=== PATIENT | female | born 1965 | race African-American/Black ===

== ENCOUNTER 2019-09-27 09:43 | Outpatient (CLI) | payer OTHER, SELFPAY ==
--- NOTE | ~2019-09-27 | MM_ITS ---
MM post biopsy diagnostic RT DATE: 09/27/2019 11:59 INDICATION: Post stereotactic biopsy diagnostic right mammogram TECHNIQUE: Digital ML and CC exposures of right breast following stereotactic biopsy of posterior upp er outer quadrant right breast calcifications COMPARISON: 09/11/2019 bilateral digital screening mammogram FINDINGS: A stellate detected biopsy marker is present but is 3 cm lateral and 3.5 cm cephalad to the area of biopsied microcalcifications. There are residual microcalcifications, but some microcalcific ations were obtained by the stereotactic biopsy, sufficient for diagnostic purposes. IMPRESSION: Status post are detected biopsy of posterior upper outer quadrant right breast magnificat ion; lipoma calcifications remain. 3 cm lateral and 3.5 cm superior migration of the biopsy marker Reviewed, dictated and finalized at [facility] Reviewed, dictated and finalized at [facility]. IMPRESSION: Status post are detected biopsy of posterior upper outer quadrant r ight breast magnification; lipoma calcifications remain. 3 cm lateral and 3.5 cm superior migration of the biopsy marker
--- NOTE | ~2019-09-27 | MM_ITS ---
MM stereotactic specimen RT DATE: 09/27/2019 11:59 INDICATION: Microcalcifications in posterior upper outer right breast TECHNIQUE: Single digital mammographic exposure of stereotactic biopsy specimen tissue COMPARISON: 09/11/2019 mammogram outside images 09/27/2019 right stereotactic biopsy images FINDINGS: Multiple microcalcifications of interest are present within the specimen tissue. IMPRESSION: Successful stereotactic biopsy of posterior upper outer quadrant right breast microcalcif ications Reviewed, dictated and finalized at [facility] Reviewed, dictated and finalized at [facility] IMPRESSION: Successful stereotactic biopsy of posterior upper outer quadrant ri ght breast microcalcifications
--- NOTE | ~2019-09-27 | MM_ITS ---
EXAMINATION: MM stereotactic bx RT, Specimen Radiograph, Tissue Marker Clip Placement, Unilateral Kain mogram DATE: 09/27/2019 11:58 INDICATION: Abnormal mammogram: Grouped microcalcifications, posterior upper outer right breast. TECHNIQUE AND FINDINGS: The risks and potential benefits of the procedure were discussed with the patient and written informe d consent was obtained. Timeout procedure was performed. The patient was placed in the prone position on the dedicated stereotactic table with the right breast in lateral medial compression, and the are a of interest was localized and targeted utilizing digital imaging with stereotaxis. After sterile preparation of the skin, 1% lidocaine was utilized for local anesthesia at the skin pun cture site and 1% lidocaine with epinephrine was utilized for deeper local anesthesia/is about the bi opsy site. A 9G [employer] vacuum assisted biopsy needle was advanced to the level of the calcification o f interest from a lateral approach utilizing stereotactic guidance and a total of 12 tissue core biop sies were obtained. A specimen radiograph demonstrates that the calcifications of interest are included within the tissue cores. A tissue marker clip was then placed at the biopsy site. A digital mammographic exposure co nfirmed the successful deployment of the biopsy marker. The needle was removed and hemostasis was ac hieved. A sterile bandage was applied. The patient tolerated the procedure well and there is no lizzeth dence of significant immediate complication. The patient was given verbal as well as written postpro cedural instructions prior to discharge from the department. Tissue cores were submitted to surgical pathology for histologic analysis. A 2-view right unilateral digital mammogram was obtained post procedure, demonstrating the tissue mar ker clip in expected position. IMPRESSION: 1. Successful stereotactic biopsy of grouped microcalcifications in the posterior upper outer right breast, followed by tissue marker clip placement. Please refer to pathology report for histologic a nalysis. Reviewed, dictated and finalized at [facility] Reviewed, dictated and finalized at [facility]. IMPRESSION: 1. Successful stereotactic biopsy of grouped microcalcifications in the poste rior upper outer right breast, followed by tissue marker clip placement. Pleas e refer to pathology report for histologic analysis.
== END 2019-09-27 09:44 | disposition home or self-care (01) ==
PROVIDERS: PCP Internal Medicine Infectious Disease; Visit Provider Internal Medicine Infectious Disease
DX: R92.8 Other abnormal and inconclusive findings on diagnostic imaging of breast (principal)
CPT/HCPCS: 19081; 77065; 88305